=== PATIENT | male | born 1970 | race Caucasian/White ===

== ENCOUNTER 2025-02-10 16:28 | Inpatient (IN) | payer OTHER ==
[2025-02-10 18:38] LABS: #Basophils Less than 0.03 10x3/uL (0.0-0.2); #Eosinophils Less than 0.03 10x3/uL (0.0-0.7); #Monocytes 0.90 10x3/uL (0.11-0.59); #Neutrophils 5.05 10x3/uL (1.40-6.50); %Basophils 0.1 % (0.0-1.0); %Eosinophils 0.3 % (0.0-10.0); %Lymphocytes 12.3 % (21.0-51.0); %Monocytes 13.1 % (0.0-10.0); %Neutrophils 73.8 % (42.0-75.0); Hematocrit 34.0 % (42.0-52.0); Hemoglobin 12.3 g/dL (14.0-18.0); Mean Corpuscular Hemoglobin 28.1 pg (27.0-31.0); Mean Corpuscular Volume 77.8 fL (78.0-98.0); Platelet Count 145 10x3/uL (130-400); Red Blood Cell (RBC) Count 4.37 mill/uL (4.70-6.10); White Blood Cell (WBC) Count 6.85 10x3/uL (4.8-10.8)
[2025-02-10] MEDS ORDERED: Cefepime 2 GM VIAL ONE (18:54)
[2025-02-10 19:01] LABS: ALT (SGPT) Less than 7 U/L (Less than 45); AST (SGOT) 22 U/L (11-34); Albumin 3.3 g/dL (3.1-4.5); Alkaline Phosphatase 57 U/L (40-110); Anion Gap 12 mmol/L (10-20); BUN (Urea Nitrogen) 14 mg/dL (8.4-25.7); Bilirubin, Total 1.5 mg/dL (0.3-1.2); Calc. Creatinine Clearance 0 mL/min (70-130); Calcium 8.8 mg/dL (7.8-10.44); Carbon Dioxide 22 mmol/L (22-29); Chloride 97 mmol/L (98-107); Globulin 3.4 g/dL (2.4-3.5); Glucose 94 mg/dL (70-105); Potassium 3.0 mmol/L (3.5-5.1); Sodium 128 mmol/L (136-145)
[2025-02-10 19:09] LABS: CRP,High Sensitivity (Inhouse) 19.89 mg/dL (< or = 0.5)
[2025-02-11 00:24] VITALS: BMI 30.9
[2025-02-11] MEDS ORDERED: Acetaminophen 325 MG TAB PO PRN (03:19)
[2025-02-11] MEDS ORDERED: Ondansetron PF 4 MG/2 ML Vial IVP PRN (03:19)
[2025-02-11 04:37] LABS: #Basophils Less than 0.03 10x3/uL (0.0-0.2); #Eosinophils Less than 0.03 10x3/uL (0.0-0.7); #Monocytes 1.03 10x3/uL (0.11-0.59); #Neutrophils 3.50 10x3/uL (1.40-6.50); %Basophils 0.4 % (0.0-1.0); %Eosinophils 0.4 % (0.0-10.0); %Lymphocytes 17.1 % (21.0-51.0); %Monocytes 18.6 % (0.0-10.0); %Neutrophils 63.0 % (42.0-75.0); Hematocrit 31.6 % (42.0-52.0); Hemoglobin 11.4 g/dL (14.0-18.0); Mean Corpuscular Hemoglobin 28.4 pg (27.0-31.0); Mean Corpuscular Volume 78.6 fL (78.0-98.0); Platelet Count 151 10x3/uL (130-400); Red Blood Cell (RBC) Count 4.02 mill/uL (4.70-6.10); White Blood Cell (WBC) Count 5.55 10x3/uL (4.8-10.8)
[2025-02-11 04:55] LABS: Anion Gap 11 mmol/L (10-20); BUN (Urea Nitrogen) 13 mg/dL (8.4-25.7); Calc. Creatinine Clearance 141 mL/min (70-130); Calcium 8.4 mg/dL (7.8-10.44); Carbon Dioxide 22 mmol/L (22-29); Chloride 103 mmol/L (98-107); Glucose 101 mg/dL (70-105); Magnesium 1.6 mg/dL (1.6-2.6); Potassium 3.1 mmol/L (3.5-5.1); Sodium 133 mmol/L (136-145)
[2025-02-11 06:17] LABS: Osmolality, Serum 275 mOsm/kg (275-295)
[2025-02-11 07:05] LABS: Osmolality, Urine 197 mOsm/kg (50-1200)
[2025-02-11] MEDS: Vancomycin (BATCH) 2.5 GM in Premix 1 BAG IVPB SCH (07:34)
[2025-02-11] MEDS: Enoxaparin 40 MG (0.4 mL) SYRINGE SC SCH (08:03)
[2025-02-11] MEDS: Vancomycin 1.5 GM / NS 500 ML VIAL-2-BAG IVPB SCH (09:28)
[2025-02-11] MEDS: Magnesium 2 GM/50 ML(in water) 2 GM in Premix 1 BAG IVPB SCH (11:21)
[2025-02-11] MEDS: Electrolyte Replacement Protocol 1 EACH FS ONE (14:52)
[2025-02-11] MEDS: Multivit, Therapeutic 1 TAB PO SCH (20:19)
[2025-02-11] MEDS ORDERED: Non-Formulary Item 1 EACH (Solifenacin Succinate [Solifenacin Succinate] 5 MG Tablet) PO SCH (21:00)
[2025-02-12 02:34] LABS: Campy jejuni + coli by PCR Negative (Negative); STEC Shiga Toxin 1+2 Negative (Negative); Salmonella spp. by PCR Negative (Negative); Shigella spp + EIEC by PCR Negative (Negative)
[2025-02-12 05:17] LABS: #Basophils Less than 0.03 10x3/uL (0.0-0.2); #Eosinophils 0.10 10x3/uL (0.0-0.7); #Monocytes 0.79 10x3/uL (0.11-0.59); #Neutrophils 2.62 10x3/uL (1.40-6.50); %Basophils 0.4 % (0.0-1.0); %Eosinophils 2.1 % (0.0-10.0); %Lymphocytes 24.0 % (21.0-51.0); %Monocytes 16.9 % (0.0-10.0); %Neutrophils 56.2 % (42.0-75.0); Hematocrit 32.7 % (42.0-52.0); Hemoglobin 11.4 g/dL (14.0-18.0); Mean Corpuscular Hemoglobin 27.7 pg (27.0-31.0); Mean Corpuscular Volume 79.6 fL (78.0-98.0); Platelet Count 173 10x3/uL (130-400); Red Blood Cell (RBC) Count 4.11 mill/uL (4.70-6.10); White Blood Cell (WBC) Count 4.67 10x3/uL (4.8-10.8)
[2025-02-12 06:01] LABS: Vancomycin, Random 16.5 ug/mL (See Comment)
[2025-02-12 06:14] LABS: Magnesium 2.0 mg/dL (1.6-2.6)
[2025-02-12 06:24] LABS: CRP,High Sensitivity (Inhouse) 8.14 mg/dL (< or = 0.5)
[2025-02-12 06:25] LABS: ALT (SGPT) Less than 7 U/L (Less than 45); AST (SGOT) 13 U/L (11-34); Albumin 2.8 g/dL (3.1-4.5); Alkaline Phosphatase 47 U/L (40-110); Anion Gap 11 mmol/L (10-20); BUN (Urea Nitrogen) 8 mg/dL (8.4-25.7); Bilirubin, Total 0.6 mg/dL (0.3-1.2); Calc. Creatinine Clearance 162 mL/min (70-130); Calcium 8.3 mg/dL (7.8-10.44); Carbon Dioxide 22 mmol/L (22-29); Chloride 109 mmol/L (98-107); Globulin 3.2 g/dL (2.4-3.5); Glucose 96 mg/dL (70-105); Potassium 3.2 mmol/L (3.5-5.1); Sodium 139 mmol/L (136-145)
[2025-02-12] MEDS: Magnesium 2 GM/50 ML(in water) 2 GM in Premix 1 BAG IVPB SCH (08:49)
[2025-02-12] MEDS: Folic Acid 1 MG TAB PO SCH (08:52)
[2025-02-12] MEDS: Pantoprazole 40 MG DR.TAB PO SCH (08:52)
[2025-02-12] MEDS: Thiamine 100 MG TAB PO SCH (08:52)
[2025-02-12] MEDS: Lisinopril 20 MG TAB PO SCH (08:52)
[2025-02-12] MEDS ORDERED: Non-Formulary Item 1 EACH (Lisinopril [Lisinopril] 40 MG Tablet) PO SCH (09:00)
[2025-02-12] MEDS: Clotrimazole 1 % Cream 30 GM TUBE TOP SCH (10:38)
[2025-02-12] MEDS ORDERED: Ammonium Lactate 12% Lotion 225 GM BOT TOP SCH (21:00)
[2025-02-12] MEDS: diphenhydrAMINE 25 MG CAP PO PRN (21:15)
[2025-02-12] MEDS: Ammonium Lactate 12% Lotion 225 GM BOT TOP SCH (22:08)
[2025-02-13 05:25] LABS: Potassium 3.8 mmol/L (3.5-5.1)
[2025-02-13 07:47] VITALS: TEMP 97.9
[2025-02-13 11:15] VITALS: BP 125/81
== END 2025-02-13 14:32 | DRG 872 ==
LOC: ERS 16:28 → SURG B 23:08 → EEVIPCON 23:08
PROVIDERS: ADMIT Internal Medicine; ATTEND Internal Medicine
DX: A41.9 Sepsis, unspecified organism (principal); L03.115 Cellulitis of right lower limb; E87.1 Hypo-osmolality and hyponatremia; I10 Essential (primary) hypertension; K21.9 Gastro-esophageal reflux disease without esophagitis; G62.9 Polyneuropathy, unspecified; N40.0 Benign prostatic hyperplasia without lower urinary tract symptoms; E87.6 Hypokalemia; B35.3 Tinea pedis; E83.42 Hypomagnesemia; E66.9 Obesity, unspecified; Z71.3 Dietary counseling and surveillance; Z68.31 Body mass index [BMI] 31.0-31.9, adult; D53.9 Nutritional anemia, unspecified
CPT/HCPCS: 36415; 80048; 80053; 80202; 83605; 83735; 83930; 83935; 84132; 84300; 85025; 86141; 87040; 87081; 87505; 96365; 96366; 96375; J0692; J1650; J3370; J3475; J7030

== ENCOUNTER 2025-04-08 17:01 | Emergency (ER) | payer OTHER ==
[~2025-04-08 17:01] MED LIST: Iopamidol-370 76% 500 ML MDV (1 ML CHARGE) ONE
[2025-04-08] MEDS ORDERED: cefTRIAXone (ROCEPHIN) 2 GM VIAL ONE (18:06)
[2025-04-08 18:45] LABS: #Basophils 0.04 10x3/uL (0.0-0.2); #Eosinophils 0.15 10x3/uL (0.0-0.7); #Monocytes 0.84 10x3/uL (0.11-0.59); #Neutrophils 5.92 10x3/uL (1.40-6.50); %Basophils 0.4 % (0.0-1.0); %Eosinophils 1.6 % (0.0-10.0); %Lymphocytes 24.3 % (21.0-51.0); %Monocytes 9.1 % (0.0-10.0); %Neutrophils 64.0 % (42.0-75.0); Hematocrit 35.8 % (42.0-52.0); Hemoglobin 12.2 g/dL (14.0-18.0); Mean Corpuscular Hemoglobin 28.2 pg (27.0-31.0); Mean Corpuscular Volume 82.9 fL (78.0-98.0); Platelet Count 195 10x3/uL (130-400); Red Blood Cell (RBC) Count 4.32 mill/uL (4.70-6.10); White Blood Cell (WBC) Count 9.26 10x3/uL (4.8-10.8)
[2025-04-08] MEDS ORDERED: Vancomycin (BATCH) 2.5 GM in Premix 1 BAG IVPB SCH (19:00)
[2025-04-08 19:08] LABS: ALT (SGPT) Less than 7 U/L (Less than 45); AST (SGOT) 14 U/L (11-34); Albumin 3.4 g/dL (3.1-4.5); Alkaline Phosphatase 74 U/L (40-110); Anion Gap 15 mmol/L (10-20); BUN (Urea Nitrogen) 14 mg/dL (8.4-25.7); Bilirubin, Total 1.5 mg/dL (0.3-1.2); Calc. Creatinine Clearance 0 mL/min (70-130); Calcium 8.9 mg/dL (7.8-10.44); Carbon Dioxide 24 mmol/L (22-29); Chloride 103 mmol/L (98-107); Globulin 3.2 g/dL (2.4-3.5); Glucose 87 mg/dL (70-105); Potassium 3.6 mmol/L (3.5-5.1); Sodium 138 mmol/L (136-145)
== END 2025-04-08 22:23 ==
LOC: ERS 17:01
DX: L03.213 Periorbital cellulitis (principal); I10 Essential (primary) hypertension; Z55.6 Problems related to health literacy
CPT/HCPCS: 70487; 80053; 83605; 85025; 87040; 96365; 96366; 96367; J0696; J3373; Q9967